=== PATIENT | male | born 1945 | race Caucasian/White ===

== ENCOUNTER → 2017-03-27 | Outpatient (CLI) | payer OTHER | LOC: US 09:30 | DX: Z13.6 Encounter for screening for cardiovascular disorders (principal) ==

== ENCOUNTER → 2020-02-11 | Outpatient (CLI) | payer MEDICARE, OTHER ==
[2020-02-11 08:48] LABS: CREATININE 0.73 mg/dL (0.70-1.30)
== END | disposition home or self-care (01) ==
LOC: CT 08:00
PROVIDERS: ATTEND Family Medicine
DX: J43.9 Emphysema, unspecified (principal); J98.4 Other disorders of lung; R59.0 Localized enlarged lymph nodes; I25.10 Atherosclerotic heart disease of native coronary artery without angina pectoris

== ENCOUNTER 2020-02-16 11:35 | Inpatient (IN) | payer MEDICARE, OTHER ==
[~2020-02-16] VITALS: Ht 170.1 cm; Wt 53.5 kg
[~2020-02-16 11:35] MED LIST: HYDROXYZINE HCL25 MG PO; KEFLEX 500 MG E2 CAP PO
[2020-02-16 11:44] VITALS: BP 137/89
[2020-02-16 12:19] LABS: MEAN CELL VOLUME 93.1 fl (80.0-94.0); MEAN CORPUSCULAR HGB 29.9 pg (27.0-31.0); MEAN CORPUSCULAR HGB CONC 32.1 g/dl (33.0-37.0); MEAN PLATELET VOLUME 9.3 fl (9.6-12.3); PLATELET COUNT AUTOMATED 331 10*3/uL (130-400); RED BLOOD COUNT 6.82 10*6/uL (4.50-5.90); RED CELL DISTRI WIDTH 14.8 % (0-14.5); WHITE BLOOD COUNT 10.2 10*3/uL (4.8-10.8)
[2020-02-16 12:33] LABS: ALKALINE PHOSPHATASE 99 U/L (45-117); BUN 16 mg/dl (7-24); CHLORIDE 107 mmol/L (98-107); CREATININE 0.91 mg/dL (0.70-1.30); POTASSIUM 4.2 mmol/L (3.5-5.1); SGOT/AST 12 IU/L (3-35); SGPT/ALT 11 U/L (12-78); SODIUM 139 mmol/L (136-145); TOTAL PROTEIN 7.6 gm/dL (6.4-8.2)
[2020-02-16 12:36] LABS: HEMATOCRIT 63.5 % (42.0-52.0)
[2020-02-16 12:45] LABS: PLATELET SUFFICIENCY NORMAL (NORMAL); TOTAL CELLS COUNTED 100 #CELLS
[2020-02-16 12:49] LABS: ETHYL ALCOHOL < 3.0 mg/dl (<3)
[2020-02-16 13:01] LABS: ACT PARTIAL THROMBO TIME 29.9 SECONDS (20.0-32.1); INTERNATIONAL NORM RATIO 0.9 (2.0-3.5)
[2020-02-16 13:05] VITALS: BP 132/56
--- NOTE | 2020-02-16 13:12 | NUR ---
WOUNDS: ALTHOUGH RASH IS WIDESPREAD, THE ONLY "OPEN" WOUND ASSOSCIATED WITH THIS RASH IN ON BILATER AHNDS, WHICH WILL BE PHOTOGRAPHED. ALSO....UNRELATED TO TODAY'S VISIT IS THAT DR GALINDO FOUND 2 SUTURES WHICH REMAIN IN PLACE AT THE SITE OF SURGICALLY REPAIRED BED-SORE FRO [address] GALINDO DIRECTS PRE AND POST SUTURE REMOVAL PHOTOS. DONE.
[2020-02-16 14:15] VITALS: BP 168/75
--- NOTE | 2020-02-16 14:15 | NUR ---
Time: 1414 A 74 year old M admitted to under services of JIE ROBERSON MD. Pt. arrived via bed from ER. Chief complaint: HANDS EXCORIATED AND PAINFUL. STARTED 01/15. DESIRE WARNER
--- NOTE | 2020-02-16 15:00 | NUR ---
DR RUBIO CONTACTED, ADMISSION ORDERS RECEIVED
--- NOTE | 2020-02-16 15:30 | NUR ---
DR DILLON AWARE OF CONSULT
[2020-02-16 16:00] VITALS: BP 141/82
--- NOTE | 2020-02-16 16:00 | NUR ---
ORDERS REJECTED BY LAB. العلي IN LAB CONTACTED AND LOOKING INTO [facility] MUTATION
[2020-02-16 17:21] LABS: ABG BASE EXCESS 3.2 mmol/L (-2.0-2.0); ARTERIAL BLOOD GAS PH 7.416 (7.35-7.45)
--- NOTE | 2020-02-16 18:00 | NUR ---
TRANSPORTED OFF FLOOR WC FOR TESTING
--- NOTE | 2020-02-16 18:30 | NUR ---
RETURNED FROM TESTING. IV FLUIDS RECONNECTED.
[2020-02-16 20:00] VITALS: BP 130/61
[2020-02-17] VITALS (7 sets, daily range): BP systolic 113–141; BP diastolic 55–91
[2020-02-17 06:14] LABS: BASO % 0.4 % (0.0-1.0); BUN 12 mg/dl (7-24); CHLORIDE 108 mmol/L (98-107); CREATININE 0.68 mg/dL (0.70-1.30); EOS % 0.3 % (1.0-4.0); LYMPH # 0.8 10*3/uL (1.3-4.4); LYMPH % 10.6 % (27.0-41.0); MEAN CELL VOLUME 92.7 fl (80.0-94.0); MEAN CORPUSCULAR HGB 29.4 pg (27.0-31.0); MEAN CORPUSCULAR HGB CONC 31.8 g/dl (33.0-37.0); MEAN PLATELET VOLUME 9.8 fl (9.6-12.3); MONO # 0.2 10*3/uL (0.1-1.0); MONO % 1.9 % (3.0-9.0); NEUT # 6.7 10*3/uL (2.3-7.9); NEUT % 86.2 % (47.0-73.0); PLATELET COUNT AUTOMATED 325 10*3/uL (130-400); POTASSIUM 4.5 mmol/L (3.5-5.1); RED BLOOD COUNT 6.15 10*6/uL (4.50-5.90); RED CELL DISTRI WIDTH 13.6 % (0-14.5); SODIUM 136 mmol/L (136-145); WHITE BLOOD COUNT 7.8 10*3/uL (4.8-10.8)
--- NOTE | 2020-02-17 07:47 | NUR ---
24 HR CHART CHECK COMPLETE.
--- NOTE | 2020-02-17 10:30 | NUR ---
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 Patient states lives at home alone with his friends/family checking in on him. There are 0 steps in the home. Physician: Dr. Naveed Bailey [facility]: [facility] Home health services: none Patient's level of ADLs: INDEPENDENT Patient has working utilities: yes DME: none Follow-up physician's appointment after d/c: he prefers to make his own follow up appt after discharge Does patient want to access PORTAL?: no Discharge plan discussed with patient. He lives at home alone with his friends and family checking in on him. He states he is independent in his ADLs and ambulation. Discussed home health care services and he declines. CM will continue to follow for any discharge planning needs. He states he was supposed to see Dr. Bailey for an appt today. When medically stable he will be discharged to home. He states a friend will provide transportation on discharge. SHEY CHONG
--- NOTE | 2020-02-17 18:45 | NUR ---
OBTAINED CONSENT FOR THERAPEUTIC PHLEBOTOMY.
--- NOTE | 2020-02-17 21:49 | NUR ---
PATIENT SHOWERED. CREAMS APPLIED PER ORDERS, PT TOLERATED WELL, C/O MILD BURNING TO CRACKED AREAS ON HANDS. IVF PER ORDER. PT WITHOUT COMPLAINTS. WILL CONT TO MONITOR.
[2020-02-18] VITALS: BP 133/69
[2020-02-18 06:54] LABS: BASO % 0.2 % (0.0-1.0); EOS % 0.1 % (1.0-4.0); HEMATOCRIT 50.6 % (42.0-52.0); LYMPH # 1.6 10*3/uL (1.3-4.4); LYMPH % 8.6 % (27.0-41.0); MEAN CORPUSCULAR HGB CONC 31.2 g/dl (33.0-37.0); MEAN PLATELET VOLUME 9.5 fl (9.6-12.3); MONO # 0.9 10*3/uL (0.1-1.0); MONO % 4.5 % (3.0-9.0); NEUT # 16.4 10*3/uL (2.3-7.9); NEUT % 85.6 % (47.0-73.0); PLATELET COUNT AUTOMATED 345 10*3/uL (130-400); RED BLOOD COUNT 5.44 10*6/uL (4.50-5.90); RED CELL DISTRI WIDTH 13.5 % (0-14.5); WHITE BLOOD COUNT 19.1 10*3/uL (4.8-10.8)
[2020-02-18 07:07] LABS: BUN 12 mg/dl (7-24); CHLORIDE 111 mmol/L (98-107); CREATININE 0.62 mg/dL (0.70-1.30); POTASSIUM 4.3 mmol/L (3.5-5.1); SODIUM 137 mmol/L (136-145)
[2020-02-18 08:00] VITALS: BP 139/61
--- NOTE | 2020-02-18 09:00 | NUR ---
CM in to see patient. No new needs or request at this time. Discussed home health care services and he declines. CM will continue to follow for any discharge planning needs. When medically stable he will be discharged to home.
[2020-02-18 12:00] VITALS: BP 133/67
--- NOTE | 2020-02-18 12:00 | NUR ---
COAL TAR CREAM APPLIED TO HANDS AT THIS TIME & PATIENT ADVISED TO LEAVE MEDICATION ON FOR 5 HRS.
[2020-02-18 16:00] VITALS: BP 118/65
--- NOTE | 2020-02-18 17:00 | NUR ---
MEDICATED CREAMS APPLIED TO PATIENT'S HANDS DIRECTED FOLLOWING SHOWER. PT TOLOERATED WELL.
[2020-02-18 20:00] VITALS: BP 153/55
[2020-02-19] VITALS: BP 135/55
--- NOTE | 2020-02-19 | NUR ---
PATIENT RESTING IN BED WITH NO NEEDS MADE. BED IN LOWEST POSITION, CALL LIGHT IN REACH
[2020-02-19 06:29] LABS: BASO # 0.1 10*3/uL (0.0-0.1); BASO % 0.6 % (0.0-1.0); EOS # 0.1 10*3/uL (0.0-0.4); EOS % 0.6 % (1.0-4.0); HEMATOCRIT 48.5 % (42.0-52.0); LYMPH # 3.4 10*3/uL (1.3-4.4); LYMPH % 23.4 % (27.0-41.0); MEAN CELL VOLUME 94.2 fl (80.0-94.0); MEAN CORPUSCULAR HGB 29.3 pg (27.0-31.0); MEAN CORPUSCULAR HGB CONC 31.1 g/dl (33.0-37.0); MEAN PLATELET VOLUME 9.4 fl (9.6-12.3); MONO # 1.2 10*3/uL (0.1-1.0); MONO % 8.4 % (3.0-9.0); NEUT # 9.6 10*3/uL (2.3-7.9); NEUT % 66.3 % (47.0-73.0); PLATELET COUNT AUTOMATED 350 10*3/uL (130-400); RED BLOOD COUNT 5.15 10*6/uL (4.50-5.90); RED CELL DISTRI WIDTH 13.8 % (0-14.5); WHITE BLOOD COUNT 14.5 10*3/uL (4.8-10.8)
[2020-02-19 08:00] VITALS: BP 150/60
--- NOTE | 2020-02-19 09:15 | NUR ---
Faxed nebulizer prescription to [facility]
--- NOTE | 2020-02-19 11:10 | NUR ---
Discharge instructions reviewed with patient/family. Patient receptive and verbalizes understanding. Follow-up care arranged. Written instructions given to patient/family. HEPLOCK DISCONTINUED. MEDICATED CREAMS GIVEN TO PATIENT. AMBULATORY OFF FLOOR. KIM IGLESIAS
--- NOTE | 2020-02-19 11:53 | NUR ---
Received call from Sharon Cooley at [facility]. They are not able to service [place]. Spoke to Shima at [facility] in [place], [place]. They are able to service patient. Referral faxed. Awaiting response.
--- NOTE | 2020-02-19 14:56 | NUR ---
Received call from Lester at [facility] regarding nebulizer prescription. She states the ICD 10 of J13.1 is not appropriate for Medicare reimbursement but she did find in the progress notes where code J44.1 could be used. She needs a new prescription with J44.1. [facility] needs signed progress notes and documentation as to why the nebulizer is needed. Has he tried inhalers and failed? What medications is he to use in the nebulizer? Dr. Leger notified. Referral sent to [facility] in [place].
== END 2020-02-19 11:10 | disposition home or self-care (01) | DRG 841 ==
LOC: ED 11:35 → 4E 13:03 → EDHOLD 13:03 → 4E 14:16
PROVIDERS: Emergency Medicine; Internal Medicine Critical Care Medicine; ADMIT Internal Medicine; ATTEND Internal Medicine
DX: D45 Polycythemia vera (principal); J44.1 Chronic obstructive pulmonary disease with (acute) exacerbation; E44.1 Mild protein-calorie malnutrition; Z68.1 Body mass index [BMI] 19.9 or less, adult; L21.8 Other seborrheic dermatitis; N28.1 Cyst of kidney, acquired; N40.2 Nodular prostate without lower urinary tract symptoms; F10.229 Alcohol dependence with intoxication, unspecified; R06.89 Other abnormalities of breathing; Q80.9 Congenital ichthyosis, unspecified; Z79.899 Other long term (current) drug therapy

== ENCOUNTER → 2020-02-21 | Outpatient (CLI) | payer MEDICARE, OTHER ==
[2020-02-22 09:09] LABS: PROSTATE SPECIFIC AG FREE 0.2 ng/mL; PROSTATE SPECIFIC AG, SERUM 2.6 ng/mL (0.0-4.0)
== END | disposition home or self-care (01) ==
LOC: LAB 10:26
PROVIDERS: ATTEND Family Medicine
DX: N40.2 Nodular prostate without lower urinary tract symptoms (principal)

== ENCOUNTER → 2020-03-05 | Outpatient (CLI) | payer MEDICARE, OTHER | END | disposition home or self-care (01) | LOC: MRI 09:44 | PROVIDERS: ATTEND Family Medicine | DX: C64.1 Malignant neoplasm of right kidney, except renal pelvis (principal); N28.1 Cyst of kidney, acquired; Z90.49 Acquired absence of other specified parts of digestive tract ==

== ENCOUNTER 2020-03-31 11:33 | Emergency (ER) | payer MEDICARE, OTHER ==
[~2020-03-31] VITALS: Ht 170.1 cm; Wt 59.0 kg
[2020-03-31 12:16] LABS: BASO # 0.1 10*3/uL (0.0-0.1); BASO % 0.6 % (0.0-1.0); EOS # 0.6 10*3/uL (0.0-0.4); EOS % 4.9 % (1.0-4.0); HEMATOCRIT 55.9 % (42.0-52.0); LYMPH # 1.6 10*3/uL (1.3-4.4); LYMPH % 12.9 % (27.0-41.0); MEAN CELL VOLUME 96.2 fl (80.0-94.0); MEAN CORPUSCULAR HGB 29.6 pg (27.0-31.0); MEAN CORPUSCULAR HGB CONC 30.8 g/dl (33.0-37.0); MONO # 1.4 10*3/uL (0.1-1.0); MONO % 11.4 % (3.0-9.0); NEUT # 8.5 10*3/uL (2.3-7.9); NEUT % 69.5 % (47.0-73.0); PLATELET COUNT AUTOMATED 291 10*3/uL (130-400); RED BLOOD COUNT 5.81 10*6/uL (4.50-5.90); RED CELL DISTRI WIDTH 14.6 % (0-14.5); WHITE BLOOD COUNT 12.2 10*3/uL (4.8-10.8)
[2020-03-31 12:38] LABS: ALBUMIN 3.1 gm/dl (3.1-4.5); ALKALINE PHOSPHATASE 183 U/L (45-117); BUN 14 mg/dl (7-24); CHLORIDE 109 mmol/L (98-107); CREATININE 0.89 mg/dL (0.70-1.30); SGOT/AST 124 IU/L (3-35); SGPT/ALT 83 U/L (12-78); SODIUM 144 mmol/L (136-145); TOTAL PROTEIN 6.8 gm/dL (6.4-8.2); TROPONIN I < 0.015 ng/ml (<0.045)
[2020-03-31] MEDS ORDERED: HYTONE 2.5% LOT2 OZ T (13:39)
[2020-03-31] MEDS ORDERED: KEFLEX500 M1 PO (13:39)
== END 2020-03-31 13:56 | disposition home or self-care (01) ==
LOC: ED 11:33
PROVIDERS: Emergency Medicine
DX: L30.9 Dermatitis, unspecified (principal); J44.9 Chronic obstructive pulmonary disease, unspecified; I25.10 Atherosclerotic heart disease of native coronary artery without angina pectoris; F17.200 Nicotine dependence, unspecified, uncomplicated

== ENCOUNTER → 2020-04-08 | Outpatient (CLI) | payer MEDICARE, OTHER ==
[~2020-04-08] MED LIST changes: +HYTONE 2.5% LOT2 OZ T; +KEFLEX500 M1 PO
[2020-04-08 16:30] LABS: GAMMA GLUTAMYL TRANSPEPTIDASE 44 U/L (15-85); LIPASE 328 U/L (73-393)
[2020-04-09 06:08] LABS: HEP B CORE AB, IGM Negative (Negative); HEPATITIS B SURFACE AG Negative (Negative); HEPATITIS C VIRUS ANTIBODY <0.1 s/co (0.0-0.9)
== END | disposition home or self-care (01) ==
LOC: LAB 14:07
PROVIDERS: ATTEND Family Medicine
DX: E78.2 Mixed hyperlipidemia (principal); L03.90 Cellulitis, unspecified; R79.89 Other specified abnormal findings of blood chemistry; R10.9 Unspecified abdominal pain

== ENCOUNTER → 2020-09-07 | Outpatient (CLI) | payer OTHER ==
[2020-09-07 15:19] LABS: HEMATOCRIT 56.2 % (42.0-52.0); MEAN CELL VOLUME 94.8 fl (80.0-94.0); MEAN CORPUSCULAR HGB 29.2 pg (27.0-31.0); MEAN CORPUSCULAR HGB CONC 30.8 g/dl (33.0-37.0); MEAN PLATELET VOLUME 9.1 fl (9.6-12.3); RED BLOOD COUNT 5.93 10*6/uL (4.50-5.90); RED CELL DISTRI WIDTH 13.9 % (0-14.5); WHITE BLOOD COUNT 11.5 10*3/uL (4.8-10.8)
[2020-09-07 15:51] LABS: ALBUMIN 3.5 gm/dl (3.1-4.5); ALKALINE PHOSPHATASE 119 U/L (45-117); BUN 14 mg/dl (7-24); CHLORIDE 103 mmol/L (98-107); CREATININE 0.87 mg/dL (0.70-1.30); GAMMA GLUTAMYL TRANSPEPTIDASE 10 U/L (15-85); POTASSIUM 3.8 mmol/L (3.5-5.1); SGOT/AST 10 IU/L (3-35); SGPT/ALT 12 U/L (12-78); SODIUM 138 mmol/L (136-145); TOTAL PROTEIN 7.9 gm/dL (6.4-8.2)
== END | disposition home or self-care (01) ==
LOC: LAB 14:38
PROVIDERS: ATTEND Family Medicine
DX: J43.9 Emphysema, unspecified (principal); J18.0 Bronchopneumonia, unspecified organism; F10.99 Alcohol use, unspecified with unspecified alcohol-induced disorder; Z72.0 Tobacco use

== ENCOUNTER → 2020-09-16 | Outpatient (CLI) | payer OTHER | END | disposition home or self-care (01) | LOC: CT 13:44 | PROVIDERS: ATTEND Family Medicine | DX: J43.9 Emphysema, unspecified (principal); J18.0 Bronchopneumonia, unspecified organism; Z95.5 Presence of coronary angioplasty implant and graft ==

== ENCOUNTER 2020-11-11 11:41 | Inpatient (IN) | payer OTHER ==
[~2020-11-11] VITALS: Ht 170.1 cm; Wt 57.6 kg
[2020-11-11 11:47] VITALS: BP 118/65
[2020-11-11 12:19] LABS: BASO # 0.1 10*3/uL (0.0-0.1); BASO % 0.5 % (0.0-1.0); EOS # 0.4 10*3/uL (0.0-0.4); EOS % 2.8 % (1.0-4.0); LYMPH # 0.7 10*3/uL (1.3-4.4); LYMPH % 4.5 % (27.0-41.0); MEAN CELL VOLUME 93.4 fl (80.0-94.0); MEAN CORPUSCULAR HGB 28.3 pg (27.0-31.0); MEAN CORPUSCULAR HGB CONC 30.3 g/dl (33.0-37.0); MEAN PLATELET VOLUME 9.7 fl (9.6-12.3); MONO # 1.1 10*3/uL (0.1-1.0); MONO % 7.4 % (3.0-9.0); NEUT % 84.2 % (47.0-73.0); PLATELET COUNT AUTOMATED 239 10*3/uL (130-400); RED BLOOD COUNT 7.92 10*6/uL (4.50-5.90); RED CELL DISTRI WIDTH 17.1 % (0-14.5); WHITE BLOOD COUNT 15.4 10*3/uL (4.8-10.8)
[2020-11-11 12:33] LABS: ALBUMIN 3.1 gm/dl (3.1-4.5); CREATININE 2.34 mg/dL (0.70-1.30); POTASSIUM 5.2 mmol/L (3.5-5.1); TOTAL PROTEIN 7.9 gm/dL (6.4-8.2)
[2020-11-11 13:46] VITALS: BP 134/66
[2020-11-11 15:58] VITALS: BP 127/63
[2020-11-11 16:30] VITALS: BP 87/61
[2020-11-11] MEDS ORDERED: ASPIRIN81 M1 PO (17:09)
[2020-11-11 18:40] VITALS: BP 90/60
[2020-11-11 20:00] VITALS: BP 116/68
[2020-11-12] VITALS: BP 107/76
[2020-11-12 08:00] VITALS: BP 124/72
[2020-11-12 08:37] LABS: BILIRUBIN 1+ (Negative); BLOOD Negative (Negative); CLARITY Cloudy (Clear); COLOR Dark Yellow (Yellow); GLUCOSE Negative (Negative); KETONE Trace (Negative); LEUKO ESTERASE Trace (Negative); NITRITE Negative (Negative)
[2020-11-12 08:47] LABS: BACTERIA 2+; HYALINE CAST 21-30; WBC 21-30 wbc/hpf (0-5)
[2020-11-12 12:00] VITALS: BP 116/88
[2020-11-12 16:00] VITALS: BP 154/57
[2020-11-12 17:38] LABS: MEAN CELL VOLUME 92.7 fl (80.0-94.0); MEAN CORPUSCULAR HGB 28.5 pg (27.0-31.0); MEAN CORPUSCULAR HGB CONC 30.8 g/dl (33.0-37.0); PLATELET COUNT AUTOMATED 197 10*3/uL (130-400); RED BLOOD COUNT 6.55 10*6/uL (4.50-5.90); RED CELL DISTRI WIDTH 15.1 % (0-14.5); WHITE BLOOD COUNT 10.7 10*3/uL (4.8-10.8)
[2020-11-12 17:50] LABS: CREATININE 1.44 mg/dL (0.70-1.30)
[2020-11-12 18:12] LABS: HEMATOCRIT 60.7 % (42.0-52.0)
[2020-11-12 18:22] LABS: PLATELET SUFFICIENCY NORMAL (NORMAL); TOTAL CELLS COUNTED 100 #CELLS
[2020-11-12 20:00] VITALS: BP 129/56
[2020-11-13] VITALS: BP 117/48
[2020-11-13 06:33] LABS: BASO % 0.2 % (0.0-1.0); EOS # 0.7 10*3/uL (0.0-0.4); EOS % 7.4 % (1.0-4.0); HEMATOCRIT 59.2 % (42.0-52.0); LYMPH # 1.7 10*3/uL (1.3-4.4); LYMPH % 17.6 % (27.0-41.0); MEAN CELL VOLUME 93.7 fl (80.0-94.0); MEAN CORPUSCULAR HGB 28.3 pg (27.0-31.0); MEAN CORPUSCULAR HGB CONC 30.2 g/dl (33.0-37.0); MEAN PLATELET VOLUME 10.5 fl (9.6-12.3); MONO % 10.3 % (3.0-9.0); NEUT % 64.1 % (47.0-73.0); PLATELET COUNT AUTOMATED 207 10*3/uL (130-400); RED BLOOD COUNT 6.32 10*6/uL (4.50-5.90); RED CELL DISTRI WIDTH 14.2 % (0-14.5); WHITE BLOOD COUNT 9.4 10*3/uL (4.8-10.8)
[2020-11-13 07:06] LABS: BUN 21 mg/dl (7-24); CHLORIDE 109 mmol/L (98-107); POTASSIUM 3.6 mmol/L (3.5-5.1); SODIUM 139 mmol/L (136-145)
[2020-11-13 07:13] LABS: CREATININE 1.09 mg/dL (0.70-1.30)
[2020-11-13 07:52] LABS: INTERNATIONAL NORM RATIO 1.2 (2.0-3.5)
[2020-11-13 08:00] VITALS: BP 120/60
[2020-11-13 11:43] VITALS: BP 122/67
== END 2020-11-13 14:20 | disposition left against medical advice (07) | DRG 391 ==
LOC: ED 11:41 → 5E 14:23 → EDHOLD 14:23 → 5E 15:16
PROVIDERS: Internal Medicine Nephrology; Physician Assistant; ADMIT Internal Medicine; ATTEND Internal Medicine
DX: K52.9 Noninfective gastroenteritis and colitis, unspecified (principal); N17.0 Acute kidney failure with tubular necrosis; J96.10 Chronic respiratory failure, unspecified whether with hypoxia or hypercapnia; Z68.1 Body mass index [BMI] 19.9 or less, adult; F10.10 Alcohol abuse, uncomplicated; Z53.29 Procedure and treatment not carried out because of patient's decision for other reasons; E86.0 Dehydration; N18.32 Chronic kidney disease, stage 3b; J43.2 Centrilobular emphysema; E87.5 Hyperkalemia; E86.1 Hypovolemia; D75.1 Secondary polycythemia; F17.210 Nicotine dependence, cigarettes, uncomplicated; R62.7 Adult failure to thrive; D63.8 Anemia in other chronic diseases classified elsewhere; Z82.49 Family history of ischemic heart disease and other diseases of the circulatory system; Z90.49 Acquired absence of other specified parts of digestive tract

== ENCOUNTER → 2020-12-26 | Outpatient (CLI) | payer OTHER ==
[~2020-12-26] MED LIST changes: +ASPIRIN81 M1 PO
[2020-12-26 14:22] LABS: MEAN CELL VOLUME 92.5 fl (80.0-94.0); MEAN CORPUSCULAR HGB 28.5 pg (27.0-31.0); MEAN CORPUSCULAR HGB CONC 30.9 g/dl (33.0-37.0); MEAN PLATELET VOLUME 9.5 fl (9.6-12.3); RED BLOOD COUNT 6.27 10*6/uL (4.50-5.90); RED CELL DISTRI WIDTH 16.9 % (0-14.5); WHITE BLOOD COUNT 11.3 10*3/uL (4.8-10.8)
[2020-12-26 14:36] LABS: ALBUMIN 3.1 gm/dl (3.1-4.5); ALKALINE PHOSPHATASE 106 U/L (45-117); BUN 14 mg/dl (7-24); CHLORIDE 102 mmol/L (98-107); CREATININE 0.76 mg/dL (0.70-1.30); SGOT/AST 12 IU/L (3-35); SGPT/ALT 12 U/L (12-78); SODIUM 138 mmol/L (136-145); TOTAL PROTEIN 7.3 gm/dL (6.4-8.2)
== END | disposition home or self-care (01) ==
LOC: LAB 13:47
PROVIDERS: ATTEND Family Medicine
DX: M17.12 Unilateral primary osteoarthritis, left knee (principal); M25.462 Effusion, left knee; D72.829 Elevated white blood cell count, unspecified; R74.8 Abnormal levels of other serum enzymes

== ENCOUNTER → 2021-08-11 | Outpatient (CLI) | payer OTHER ==
[2021-08-11 12:54] LABS: BILIRUBIN Negative (Negative); BLOOD Negative (Negative); CLARITY Cloudy (Clear); COLOR Yellow (Yellow); GLUCOSE Negative (Negative); KETONE Negative (Negative); LEUKO ESTERASE 1+ (Negative); NITRITE Positive (Negative); PH 6.5 (4.5-8.0); SPECIFIC GRAVITY 1.025 (1.001-1.030)
[2021-08-11 13:13] LABS: BACTERIA 4+
== END | disposition home or self-care (01) ==
LOC: LAB 12:36
PROVIDERS: ATTEND Family Medicine
DX: I25.10 Atherosclerotic heart disease of native coronary artery without angina pectoris (principal); F10.10 Alcohol abuse, uncomplicated; R10.84 Generalized abdominal pain; F17.210 Nicotine dependence, cigarettes, uncomplicated; R19.7 Diarrhea, unspecified

== ENCOUNTER → 2021-08-13 | Outpatient (CLI) | payer OTHER ==
[2021-08-13 11:43] LABS: BILIRUBIN Negative (Negative); BLOOD Negative (Negative); CLARITY Cloudy (Clear); COLOR Dark Yellow (Yellow); GLUCOSE Negative (Negative); KETONE Trace (Negative); LEUKO ESTERASE 1+ (Negative); NITRITE Positive (Negative); SPECIFIC GRAVITY 1.025 (1.001-1.030)
[2021-08-13 11:46] LABS: HEMATOCRIT 56.8 % (42.0-52.0); MEAN CELL VOLUME 92.5 fl (80.0-94.0); MEAN CORPUSCULAR HGB 29.3 pg (27.0-31.0); MEAN CORPUSCULAR HGB CONC 31.7 g/dl (33.0-37.0); PLATELET COUNT AUTOMATED 374 10*3/uL (130-400); RED BLOOD COUNT 6.14 10*6/uL (4.50-5.90); RED CELL DISTRI WIDTH 13.2 % (0-14.5); WHITE BLOOD COUNT 11.5 10*3/uL (4.8-10.8)
[2021-08-13 11:52] LABS: MANUAL DIFF REFLEX YES
[2021-08-13 11:59] LABS: BACTERIA 2+; MUCOUS 3+; WBC 41-50 wbc/hpf (0-5)
[2021-08-13 12:03] LABS: ALKALINE PHOSPHATASE 169 U/L (45-117); BUN 14 mg/dl (7-24); CHLORIDE 105 mmol/L (98-107); CHOLESTEROL 174 mg/dL (<200); LDL CHOLESTEROL 118 mg/dL (9-159); LIPASE 206 U/L (73-393); POTASSIUM 4.1 mmol/L (3.5-5.1); SGOT/AST 12 IU/L (3-35); SGPT/ALT 24 U/L (12-78); SODIUM 140 mmol/L (136-145); TOTAL PROTEIN 7.4 gm/dL (6.4-8.2); TRIGLYCERIDES 77 mg/dl (<150)
[2021-08-13 12:07] LABS: BASOPHILS 1 % (0-1); PLATELET SUFFICIENCY NORMAL (NORMAL); TOTAL CELLS COUNTED 100 #CELLS
[2021-08-13 13:48] LABS: FERRITIN 176.7 ng/mL (22.0-322.0)
== END | disposition home or self-care (01) ==
LOC: LAB 11:19
PROVIDERS: ATTEND Family Medicine
DX: F17.210 Nicotine dependence, cigarettes, uncomplicated (principal); R10.84 Generalized abdominal pain; F10.10 Alcohol abuse, uncomplicated; R19.7 Diarrhea, unspecified; I25.10 Atherosclerotic heart disease of native coronary artery without angina pectoris; D45 Polycythemia vera; Z79.899 Other long term (current) drug therapy

== ENCOUNTER → 2021-08-30 | Outpatient (CLI) | payer OTHER | END | disposition home or self-care (01) | LOC: RAD 12:32 | PROVIDERS: ATTEND Family Medicine | DX: S92.323A Displaced fracture of second metatarsal bone, unspecified foot, initial encounter for closed fracture (principal); L97.522 Non-pressure chronic ulcer of other part of left foot with fat layer exposed; X58.XXXA Exposure to other specified factors, initial encounter; Y93.89 Activity, other specified; Y92.89 Other specified places as the place of occurrence of the external cause; Y99.8 Other external cause status ==

== ENCOUNTER → 2021-11-11 | Day surgery (SDC) | payer OTHER ==
[~2021-11-11] VITALS: Ht 170.1 cm; Wt 54.0 kg
[2021-11-11 08:02] VITALS: BP 138/76
[2021-11-11 08:50] VITALS: BP 85/36
[2021-11-11 09:05] VITALS: BP 90/56
[2021-11-11 09:20] VITALS: BP 90/56
== END | disposition home or self-care (01) ==
LOC: SDC 11-08 10:15
PROVIDERS: ATTEND Surgery
DX: R63.4 Abnormal weight loss (principal); K57.30 Diverticulosis of large intestine without perforation or abscess without bleeding; J43.9 Emphysema, unspecified; I25.10 Atherosclerotic heart disease of native coronary artery without angina pectoris; K21.9 Gastro-esophageal reflux disease without esophagitis; F17.210 Nicotine dependence, cigarettes, uncomplicated; Z90.49 Acquired absence of other specified parts of digestive tract; Z98.890 Other specified postprocedural states; Z79.899 Other long term (current) drug therapy

== ENCOUNTER 2021-12-22 11:18 | Emergency (ER) | payer OTHER ==
[~2021-12-22] VITALS: Ht 170.1 cm; Wt 51.7 kg
[2021-12-22 12:09] LABS: BASO # 0.1 10*3/uL (0.0-0.1); BASO % 0.7 % (0.0-1.0); EOS % 0.3 % (1.0-4.0); LYMPH # 1.2 10*3/uL (1.3-4.4); LYMPH % 12.8 % (27.0-41.0); MEAN CELL VOLUME 94.9 fl (80.0-94.0); MEAN CORPUSCULAR HGB 29.3 pg (27.0-31.0); MEAN CORPUSCULAR HGB CONC 30.9 g/dl (33.0-37.0); MEAN PLATELET VOLUME 9.2 fl (9.6-12.3); MONO # 1.3 10*3/uL (0.1-1.0); MONO % 13.3 % (3.0-9.0); NEUT % 72.4 % (47.0-73.0); PLATELET COUNT AUTOMATED 390 10*3/uL (130-400); RED BLOOD COUNT 5.69 10*6/uL (4.50-5.90); WHITE BLOOD COUNT 9.7 10*3/uL (4.8-10.8)
[2021-12-22 12:20] LABS: INTERNATIONAL NORM RATIO 1.1 (2.0-3.5)
[2021-12-22 12:25] LABS: ALKALINE PHOSPHATASE 71 U/L (45-117); BUN 18 mg/dl (7-24); CHLORIDE 101 mmol/L (98-107); CREATININE 1.12 mg/dL (0.70-1.30); POTASSIUM 4.2 mmol/L (3.5-5.1); SGOT/AST 20 IU/L (3-35); SGPT/ALT 13 U/L (12-78); SODIUM 136 mmol/L (136-145); TOTAL PROTEIN 7.2 gm/dL (6.4-8.2)
[2021-12-22 12:33] LABS: THYROID STIM HORMONE (HS) 0.634 uIU/ml (0.358-4.75)
[2021-12-22 13:57] LABS: BILIRUBIN Negative (Negative); BLOOD Trace-Lysed (Negative); CLARITY Cloudy (Clear); COLOR Yellow (Yellow); GLUCOSE Negative (Negative); KETONE Negative (Negative); LEUKO ESTERASE 2+ (Negative); NITRITE Positive (Negative); PH 5.5 (4.5-8.0); UROBILINOGEN 0.2 E.U./dl (0.0-1.0)
[2021-12-22 14:09] LABS: BACTERIA 4+; RBC 16-20 rbc/hpf (0-2); WBC 31-40 wbc/hpf (0-5)
[2021-12-22] MEDS ORDERED: CEPHALEXIN500 M1 PO (14:35)
== END 2021-12-22 15:14 | disposition home or self-care (01) ==
LOC: ED 11:18
PROVIDERS: Emergency Medicine
DX: N39.0 Urinary tract infection, site not specified (principal); R53.1 Weakness; F17.210 Nicotine dependence, cigarettes, uncomplicated; Z90.49 Acquired absence of other specified parts of digestive tract; Z79.82 Long term (current) use of aspirin

== ENCOUNTER → 2022-01-07 | Outpatient (CLI) | payer OTHER ==
[~2022-01-07] MED LIST changes: +CEPHALEXIN500 M1 PO
== END | disposition home or self-care (01) ==
LOC: CT 09:58
PROVIDERS: ATTEND Family Medicine
DX: K57.32 Diverticulitis of large intestine without perforation or abscess without bleeding (principal); R68.81 Early satiety; J98.11 Atelectasis; F17.200 Nicotine dependence, unspecified, uncomplicated; N28.1 Cyst of kidney, acquired

== ENCOUNTER → 2022-08-26 | Outpatient (CLI) | payer OTHER | END | disposition home or self-care (01) | LOC: RAD 09:20 | PROVIDERS: ATTEND Family Medicine | DX: J44.1 Chronic obstructive pulmonary disease with (acute) exacerbation (principal) ==

== ENCOUNTER 2024-03-19 13:36 | Emergency (ER) | payer MEDICARE ==
[~2024-03-19] VITALS: Wt 54.4 kg
[2024-03-19] MEDS ORDERED: Acetaminophen/Oxycodone Hydr 7.5 MG/325 MG TABLET PO ONE (13:55)
[2024-03-19] MEDS ORDERED: Ketorolac Tromethamine 30 MG/ML VIAL IM ONE (13:55)
[2024-03-19] MEDS ORDERED: Tdap Vaccine 0.5 ML SYR (Adult Vaccine) IM ONE (14:00)
[2024-03-19] MEDS ORDERED: SILVADENE20 GM T (14:36)
[2024-03-19] MEDS ORDERED: LMX TD (14:49)
[2024-03-19] MEDS ORDERED: LIDOCAINE 5% ANORECTAL CREAM T ONE (14:50)
[2024-03-19] MEDS ORDERED: CEPHALEXIN 500 MG CAP PO ONE (14:50)
[2024-03-19] MEDS ORDERED: SILVER SULFADIAZINE 25 GM TUBE T ONE (14:50)
[2024-03-19] MEDS ORDERED: OXYCODONE-ACET1 EAC3 PO (14:55)
[2024-03-19] MEDS ORDERED: CEPHALEXIN500 M1 PO (15:13)
== END 2024-03-19 15:00 | disposition home or self-care (01) ==
LOC: ED 13:36
DX: T22.20XA Burn of second degree of shoulder and upper limb, except wrist and hand, unspecified site, initial encounter (principal); T20.16XA Burn of first degree of forehead and cheek, initial encounter; T20.112A Burn of first degree of left ear [any part, except ear drum], initial encounter; T31.0 Burns involving less than 10% of body surface; J43.9 Emphysema, unspecified; I25.10 Atherosclerotic heart disease of native coronary artery without angina pectoris; F10.10 Alcohol abuse, uncomplicated; F17.210 Nicotine dependence, cigarettes, uncomplicated; Z90.49 Acquired absence of other specified parts of digestive tract; Z95.5 Presence of coronary angioplasty implant and graft; Z98.890 Other specified postprocedural states; X17.XXXA Contact with hot engines, machinery and tools, initial encounter; Y93.89 Activity, other specified; Y92.89 Other specified places as the place of occurrence of the external cause; Y99.8 Other external cause status